=== PATIENT | female | born 1955 | race Hispanic/Latino ===

== ENCOUNTER → 2017-04-23 | Day surgery (SDC) | payer OTHER ==
[~2017-04-23] MED LIST: ACETAMINOPHEN500 M1 PO; BUPIVACAINE 0.5%/EPI 30 ML SDV INJ ONE; BUTALB-CAFF-AC1 EACH PO; CALTRATE 600 W1 EACH PO; CEFAZOLIN SOD 1 GM/NS 50ML 50 ML IV ONE; CENTRAVITES 501 EACH PO; CLINDAMYCIN 300MG 50 ML IV ONE; CYMBALTA30 MG PO; FENTANYL CITRATE/PF 100MCG/2 ML INJ ONE; GABAPENTIN300 MG PO; LIDOCAINE 1% W/EPINEPHRINE 20 ML VIAL ONE; LIDOCAINE HCL 2% LOCAL INJ 5 ML SDV VIAL INJ ONE; MIDAZOLAM HCL 2 MG/2 ML VIAL ONE; MONTELUKAST SOD10 MG PO; ONDANSETRON HCL INJ 2 MG/ML VIAL ONE; PROPOFOL IV EMULSION 10 MG/ML 20 ML VIAL ONE; TIZANIDINE HCL4 MG PO; VITAMIN B-121000 MC2 SL; ZYRTEC10 MG PO
--- NOTE | 2017-06-03 05:59 | Operative Report ---
DATE OF PROCEDURE: April 23, 2017 PREOPERATIVE DIAGNOSES 1. Refractory urge incontinence. 2. With malfunctioning InterStim. POSTOPERATIVE DIAGNOSES 1. Refractory urge incontinence. 2. With malfunctioning InterStim. OPERATIONS PERFORMED 1. Explantation of right InterStim electrode array. 2. Placement of right InterStim tined quadripolar lead electrodes into the right foramen, S3. 3. Subcutaneous implantation of a replacement sacral nerve neurostimulator. 4. Fluoroscopic guidance for needle placement. 5. Electronic analysis and complex programming. ANESTHESIA: General. COMPLICATIONS: None. CLINICAL SUMMARY: Jhoana Dominguez is a 71-year-old woman with malfunctioning right InterStim. This causes her heel rotation and she is brought for operation and she is aware of the risks of bleeding, infection, injury to adjacent structures, need for additional procedures, and elected to proceed. She is aware also that she cannot have MRI of the regions involved. OPERATIVE PROCEDURE IN DETAIL: Informed consent was verified. Jhoana Dominguez was properly identified, taken to operating room, placed on the operating table in the prone position with all pressure points carefully well padded and intravenous IV anesthesia was given. The patient's back and buttocks were prepared and draped in usual sterile fashion. Local anesthetic utilized with a combination of Marcaine and lidocaine with epinephrine. We infiltrated prior to making any incision. An incision was made overlying the electrodes in the right foramen S3. We carefully dissected until we visualized the electrodes. It was gently pulled out in its entirety. A needle was then introduced into the right foramen S3. It was verified in position by watching, bellowing or lifting of the perineum, as well as plantar flexion of the great toe. Depth of the needle was confirmed and adjusted fluoroscopically as well. The needle stylette was removed and directional guidewire was then placed and confirmed fluoroscopically. The foramen needle was removed. An incision was then made peripheral to the directional guide. The foramen needle was then removed. The dilator and introducer sheath were then placed over the directional guide in the direction of the foramen until the opaque marker of the dilator was seen midway across the sacrum. The dilator obturator was then unlocked and removed. The lead was then placed through the introducer sheath to the 1st white line. Position was confirmed fluoroscopically, as well as with electronic testing. We ensured that 4 leads were visible anterior to the sacrum. Each electrode was tested with satisfactory results for bellowing and plantarflexion of the great. Further incision was then made into subcutaneous tissues overlying the previous implant. The implant was delivered. We incised laterally to create a more lateral pocket, and fulgurated the mucosa of the existing pocket, where we were not going to have an implant because we are implanting more laterally. We utilized the tunneling tool to bring the electrode to the pocket site. The electrode was cleansed from fluids with sterile water. It was dried very thoroughly. It was then placed into the InterStim pulse generator with the metal bands aligned and the blue lead tip clearly visible in the distal portion of the pulse generator header. The single set screw was tightened with a hex wrench. Copious irrigation was performed of all incisions. The pulse generator was then placed into the pocket. The programming head was then placed over the implanted neurostimulator. All impedance parameters were within appropriate limits. Both the incisions were then approximated in 2 layers utilizing absorbable suture. Mastisol, Steri-Strips were applied. Bio-occlusive dressings were applied. The patient was uneventfully reversed from anesthesia and taken to recovery in stable condition. There no complications to the procedure. The patient tolerated the procedure well. Sponge and needle, instrument counts were correct x2 at the end of the case. Estimated blood loss was minimal. Explicit postoperative instructions were given and we will follow the patient up in the office on a regular basis for impedance checks and reprogramming as needed. In the recovery room and day surgery discharge area, the patient was programmed to the lead of optimum sensation utilizing the clinician pl sql programmer. She was given instructions on utilizing the patient pl sql programmer prior to discharge. Job#: [id number] cc:KRYSTINA NOLAND M.D.
== END | disposition home or self-care (01) ==
LOC: OR 07:41
PROVIDERS: ATTEND Urology
DX: T85.698A Other mechanical complication of other specified internal prosthetic devices, implants and grafts, initial encounter (principal); N39.41 Urge incontinence; G89.29 Other chronic pain; Y83.1 Surgical operation with implant of artificial internal device as the cause of abnormal reaction of the patient, or of later complication, without mention of misadventure at the time of the procedure; Z01.810 Encounter for preprocedural cardiovascular examination
CPT/HCPCS: 64581; 64590; 76000; 88300; 93005; 95972; C1778; C1787; C1894; J2001; J2250; J2405; L8679; L8696

== ENCOUNTER → 2023-03-24 | Day surgery (SDC) | payer MEDICARE, OTHER ==
[2023-03-23 15:38] LABS: BASOPHILS % 0.6 % (0.0-1.0); EOSINOPHILS # (AUTO) 0.1 (0.0-0.4); EOSINOPHILS % 1.1 % (0.0-6.0); HEMATOCRIT 43.1 % (34.2-44.1); HEMOGLOBIN 14.3 g/dL (12.0-16.0); LYMPHOCYTES % 29.7 % (18.0-39.1); MEAN CORPUSCULAR HEMOGLOBIN 29.9 pg (28-32); MEAN CORPUSCULAR HGB CONC 33.2 g/dL (31-35); MEAN CORPUSCULAR VOLUME 90.2 fL (81-99); MONOCYTES # (AUTO) 0.3 (0.2-0.8); MONOCYTES % 5.2 % (4.4-11.3); NEUTROPHILS # (AUTO) 4.2 (2.1-6.9); NEUTROPHILS % 63.2 % (38.7-80.0); PLATELET COUNT 242 x10e3/uL (140-360); RED BLOOD COUNT 4.78 x10e6/uL (3.6-5.1); RED CELL DISTRIBUTION WIDTH 12.2 % (11.7-14.4); WHITE BLOOD COUNT 6.56 x10e3/uL (4.8-10.8)
[2023-03-23 15:56] LABS: ANION GAP 12.3 mmol/L (8-16); CALCIUM 9.9 mg/dL (8.4-10.2); CREATININE, SERUM 0.79 mg/dL (0.57-1.11); POTASSIUM 4.3 mmol/L (3.5-5.1)
[~2023-03-24] MED LIST changes: +ALPHA LIPOIC A100 MG; +BENEFIBER1 EAC1; -BUPIVACAINE 0.5%/EPI 30 ML SDV INJ ONE; -CEFAZOLIN SOD 1 GM/NS 50ML 50 ML IV ONE; -CLINDAMYCIN 300MG 50 ML IV ONE; +CLINDAMYCIN 600MG / 50ML 50 ML IV ONE; +DAILY VALUE1 EACH; +DEXMEDETOMIDINE HCL 200 MCG/2 ML VIAL ONE; +EPHEDRINE SULFATE INJ 50 MG/ML VIAL ONE; +FAMOTIDINE 20 MG/2 ML VIAL IV ONE; +FLONASE ALLERG9.9 ML INH; +KETAMINE 50MG/5ML SYR ONE; +LACTATED RINGER'S 1,000 ML ONE; -LIDOCAINE 1% W/EPINEPHRINE 20 ML VIAL ONE; -LIDOCAINE HCL 2% LOCAL INJ 5 ML SDV VIAL INJ ONE; +MAGNESIUM; +MELATONIN3 MG PO; +NITROFURANTOIN100 MG PO; -ONDANSETRON HCL INJ 2 MG/ML VIAL ONE; +ONDANSETRON HCL INJ 2MG/ML 2ML 2 MG/ML VIAL IV ONE; +ONDANSETRON HCL INJ 2MG/ML 2ML 2 MG/ML VIAL ONE; +PIPERACILLIN/TAZOBACTAM 3.375 GM VIAL ONE; +ROCURONIUM BROMIDE 10 MG/ML 5ML VIAL IV ONE; +SELENIUM200 MC2; +SEVOFLURANE INHAL SOLN 250 ML PEN BTL ONE; +SUCCINYLCHOLINE CHLORIDE 20 MG/ML 10ML VIAL ONE; +SUGAMMADEX SODIUM 200 MG/2 ML VIAL IV ONE; +TRAMADOL HCL 50 MG TAB ONE; +TRULANCE3 MG; +TURMERIC1 GM; +VITAMIN D31 ML; +[UNRECOGNIZED DRUG - OTHER]
[2023-03-24 11:19] VITALS: TEMP 97.1
[2023-03-24 12:25] VITALS: BP 120/73; PULSE 59; RESP 16; O2SAT 97
== END | disposition home or self-care (01) ==
LOC: OR 07:07
PROVIDERS: ATTEND Urology
DX: T85.113A Breakdown (mechanical) of implanted electronic neurostimulator, generator, initial encounter (principal); N39.41 Urge incontinence; G89.29 Other chronic pain; Y83.8 Other surgical procedures as the cause of abnormal reaction of the patient, or of later complication, without mention of misadventure at the time of the procedure; Z88.8 Allergy status to other drugs, medicaments and biological substances; Z88.6 Allergy status to analgesic agent; Z88.1 Allergy status to other antibiotic agents; Z91.041 Radiographic dye allergy status; Z91.040 Latex allergy status; Z01.810 Encounter for preprocedural cardiovascular examination; Z01.812 Encounter for preprocedural laboratory examination; Z01.818 Encounter for other preprocedural examination; Z79.899 Other long term (current) drug therapy
CPT/HCPCS: 36415; 64581; 64590; 71046; 76000; 80048; 85025; 88300; 93005; 95972; C1767; C1778; C1787; J0330; J2250; J2405; J2543; J2704; J3010; J7121

== ENCOUNTER → 2023-09-27 | Outpatient (REF) | payer MEDICARE, OTHER ==
[~2023-09-27] MED LIST changes: -CLINDAMYCIN 600MG / 50ML 50 ML IV ONE; -DEXMEDETOMIDINE HCL 200 MCG/2 ML VIAL ONE; -EPHEDRINE SULFATE INJ 50 MG/ML VIAL ONE; -FAMOTIDINE 20 MG/2 ML VIAL IV ONE; -FENTANYL CITRATE/PF 100MCG/2 ML INJ ONE; -KETAMINE 50MG/5ML SYR ONE; -LACTATED RINGER'S 1,000 ML ONE; -MIDAZOLAM HCL 2 MG/2 ML VIAL ONE; -ONDANSETRON HCL INJ 2MG/ML 2ML 2 MG/ML VIAL IV ONE; -ONDANSETRON HCL INJ 2MG/ML 2ML 2 MG/ML VIAL ONE; -PIPERACILLIN/TAZOBACTAM 3.375 GM VIAL ONE; -PROPOFOL IV EMULSION 10 MG/ML 20 ML VIAL ONE; -ROCURONIUM BROMIDE 10 MG/ML 5ML VIAL IV ONE; -SEVOFLURANE INHAL SOLN 250 ML PEN BTL ONE; -SUCCINYLCHOLINE CHLORIDE 20 MG/ML 10ML VIAL ONE; -SUGAMMADEX SODIUM 200 MG/2 ML VIAL IV ONE; -TRAMADOL HCL 50 MG TAB ONE
== END ==
LOC: RAD 11:38
PROVIDERS: ATTEND Urology
DX: Z45.42 Encounter for adjustment and management of neurostimulator (principal)
CPT/HCPCS: 72170; 72220

== ENCOUNTER → 2025-01-09 | Outpatient (REF) | payer MEDICARE, OTHER | LOC: RAD 11:59 | PROVIDERS: ATTEND Urology | DX: Z45.42 Encounter for adjustment and management of neurostimulator (principal) | CPT/HCPCS: 72170; 72220 ==

== ENCOUNTER → 2025-01-16 | Outpatient (REF) | payer MEDICARE, OTHER | LOC: US 07:39 | PROVIDERS: ATTEND Internal Medicine Gastroenterology | DX: K76.0 Fatty (change of) liver, not elsewhere classified (principal); Z68.26 Body mass index [BMI] 26.0-26.9, adult; Z71.3 Dietary counseling and surveillance; Z78.9 Other specified health status | CPT/HCPCS: 76700 ==